=== PATIENT | male | born 1960 | race Caucasian/White ===

== ENCOUNTER → 2020-01-21 | Outpatient (CLI) | payer OTHER ==
[2020-01-21 14:55] LABS: CREATININE 1.1 mg/dL (0.6-1.3)
== END ==
LOC: M.CT 12:21 → M.LAB 13:30
PROVIDERS: Family Medicine
DX: J98.4 Other disorders of lung (principal); J84.10 Pulmonary fibrosis, unspecified; R60.0 Localized edema

== ENCOUNTER → 2021-06-20 | Outpatient (CLI) | payer OTHER | LOC: M.ULTRA 05-21 10:30 | PROVIDERS: ATTEND Family Medicine | DX: K80.20 Calculus of gallbladder without cholecystitis without obstruction (principal); K76.0 Fatty (change of) liver, not elsewhere classified; R16.1 Splenomegaly, not elsewhere classified ==